=== PATIENT | female | born 2000 | race Caucasian/White ===

== ENCOUNTER 2021-07-29 21:01 | Emergency (ER) | payer BC ==
[~2021-07-29] VITALS: Ht 170.2 cm; Wt 68.0 kg
--- NOTE | 2021-07-29 21:10 | NUR ---
Dr. Garcia at bedside for MSE.
[2021-07-29] MEDS ORDERED: LIDOCAINE HCL 1% 20 ML VIAL IJ ONE (21:15)
[2021-07-29 22:10] VITALS: BP 139/63
--- NOTE | 2021-07-29 22:10 | NUR ---
Patient discharged to home in stable condition. Written and verbal after care instructions given. Patient verbalizes understanding of instructions. Stressed follow up or return to ER for worsening s/s. Pt out of ER with steady gait, no acute signs of distress, VSS, all belongings taken
== END 2021-07-29 22:10 | disposition home or self-care (01) ==
LOC: ER 21:11
DX: S61.215A Laceration without foreign body of left ring finger without damage to nail, initial encounter (principal); W26.0XXA Contact with knife, initial encounter; Y93.G1 Activity, food preparation and clean up; Y92.89 Other specified places as the place of occurrence of the external cause
CPT/HCPCS: A4663